=== PATIENT | female | born 2000 ===

== ENCOUNTER 2024-12-07 12:01 | Outpatient (REF) | payer MEDICAID, SELFPAY ==
[2024-12-08 10:31] LABS: Lyme Ab w Rflx to Lyme Confirm Negative (Negative)
== END 2024-12-07 12:02 | disposition home or self-care (01) ==
LOC: LBN 12:01
PROVIDERS: PCP Physician Assistant Medical; Visit Provider Physician Assistant Medical
DX: W57.XXXA Bitten or stung by nonvenomous insect and other nonvenomous arthropods, initial encounter (principal); T14.90XA Injury, unspecified, initial encounter
CPT/HCPCS: 86618